=== PATIENT | male | born 1980 | race Caucasian/White ===

== ENCOUNTER 2017-01-27 16:29 | Emergency (ER) | payer MEDICAID, OTHER, SELFPAY ==
[~2017-01-27] VITALS: Ht 182.9 cm; Wt 77.1 kg
[~2017-01-27 16:29] MED LIST: FOLI1TAB86 PO; LEVI20TA39 PO; VENL37TA PO; VITA100T18 PO; VITMTA PO
[2017-01-27 16:30] VITALS: BP 146/79
[2017-01-27 17:39] LABS: BASO % 0.3 % (0.0-1.0); EOS # 0.1 K/mm3 (0.0-0.50); EOS % 1.5 % (0.0-3.0); LARGE UNSTAINED CELL # 0.1 K/mm3 (0.0-0.4); LARGE UNSTAINED CELL % 1.8 % (0.0-4.0); LYMPH # 2.5 K/mm3 (1.5-4.5); LYMPH % 29.8 % (24.0-44.0); MEAN CORPUSCULAR HEMOGLOBIN 29.1 pg (27.0-33.0); MEAN CORPUSCULAR HGB CONC 34.1 g/dl (32.0-36.5); MEAN CORPUSCULAR VOLUME 85.3 fl (80.0-96.0); MONO # 0.5 K/mm3 (0.0-0.8); MONO % 6.6 % (0.0-5.0); NEUTROPHILS # 4.7 K/mm3 (1.8-7.7); PLATELET COUNT, AUTOMATED 331 k/mm3 (150-450); RED CELL DISTRIBUTION WIDTH 12.2 % (11.5-14.5); WHITE BLOOD COUNT 7.8 K/mm3 (4.0-10.0)
--- NOTE | 2017-01-27 17:40 | REPUSA ---
CT of the head Clinical history: left-sided neurological symptoms. Technique: Multiple axial CT images were obtained through the head without administration of contrast . Findings: The ventricles and sulci are symmetric bilaterally. There is no evidence of acute hemorrhag e or infarct. There is no midline shift, mass effect, or extra-axial fluid collection. The osseous st ructures are unremarkable. The visualized paranasal sinuses and mastoid air cells are clear. Impression: Negative study.
[2017-01-27 18:00] LABS: ALBUMIN 4.2 GM/DL (3.2-5.2); ALBUMIN/GLOBULIN RATIO 1.27 (1.00-1.93); ALKALINE PHOSPHATASE 99 U/L (45-117); ALT/SGPT 21 U/L (12-78); ANION GAP 7 MEQ/L (8-16); AST/SGOT 16 U/L (15-37); BILIRUBIN,TOTAL 0.5 MG/DL (0.2-1.0); BLOOD UREA NITROGEN 16 MG/DL (7-18); CALCIUM LEVEL 8.7 MG/DL (8.5-10.1); CARBON DIOXIDE LEVEL 31 MEQ/L (21-32); CHLORIDE LEVEL 104 MEQ/L (98-107); CREATININE FOR GFR 1.14 MG/DL (0.70-1.30); GLOMERULAR FILTRATION RATE > 60.0 (>60); GLUCOSE, FASTING 90 MG/DL (70-105); POTASSIUM SERUM 3.7 MEQ/L (3.5-5.1); SODIUM LEVEL 142 MEQ/L (136-145); TOTAL PROTEIN 7.5 GM/DL (6.4-8.2)
[2017-01-27] MEDS ORDERED: LR 1,000 ML IV SCH (18:00)
[2017-01-27] MEDS ORDERED: methylPREDNISolone 500 MG, VIAL MATE ADAPTER 1 EACH in D5W 250 ML IV ONE (20:00)
[2017-01-27] MEDS ORDERED: predniSONE 20 MG TAB PO ONE (20:00)
[2017-01-27] MEDS ORDERED: predniSONE 50 MG TAB PO ONE (20:00)
[2017-01-27] MEDS ORDERED: BACL10TA2 PO (21:49)
== END 2017-01-27 22:10 | disposition home or self-care (01) ==
LOC: M ED 17:02
DX: G35 Multiple sclerosis (principal); F17.200 Nicotine dependence, unspecified, uncomplicated
CPT/HCPCS: 70450; 80053; 85025; 96361; 96365; 96366; 99282; J2930

== ENCOUNTER 2017-01-28 13:54 | Emergency (ER) | payer MEDICAID, OTHER ==
[~2017-01-28] VITALS: Ht 182.9 cm; Wt 79.4 kg
[~2017-01-28 13:54] MED LIST changes: +BACL10TA2 PO
[2017-01-28] MEDS ORDERED: methylPREDNISolone INJ 125 MG/2 ML VIAL (J2930) IV ONE (15:45)
[2017-01-28 16:37] VITALS: BP 143/88
[2017-01-29] MEDS ORDERED: PRED10TA PO (14:49)
== END 2017-01-28 16:40 | disposition home or self-care (01) ==
LOC: M ED 15:45
DX: G35 Multiple sclerosis (principal); F17.200 Nicotine dependence, unspecified, uncomplicated; Z79.899 Other long term (current) drug therapy
CPT/HCPCS: 96374; 99282; J2930

== ENCOUNTER 2017-01-29 12:41 | Emergency (ER) | payer OTHER ==
[~2017-01-29] VITALS: Ht 182.9 cm; Wt 79.4 kg
[2017-01-29] MEDS ORDERED: methylPREDNISolone INJ 125 MG/2 ML VIAL (J2930) IV ONE (13:00)
[2017-01-29] MEDS ORDERED: methylPREDNISolone 500 MG, VIAL MATE ADAPTER 1 EACH in D5W 250 ML IV ONE (13:15)
[2017-01-29] MEDS ORDERED: PRED10TA PO (14:49)
[2017-01-29 15:32] VITALS: BP 134/72
== END 2017-01-29 15:34 | disposition home or self-care (01) ==
LOC: M ED 13:01
DX: G35 Multiple sclerosis (principal); F17.200 Nicotine dependence, unspecified, uncomplicated; Z79.899 Other long term (current) drug therapy
CPT/HCPCS: 96374; 99283; J2930

== ENCOUNTER 2017-04-27 10:36 | Emergency (ER) | payer OTHER ==
[~2017-04-27] VITALS: Ht 182.9 cm; Wt 80.1 kg
[~2017-04-27 10:36] MED LIST changes: +PRED10TA2 PO
[2017-04-27] MEDS: methylPREDNISolone 500 MG, VIAL MATE ADAPTER 1 EACH in D5W 250 ML IV ONE (11:30)
[2017-04-27] MEDS: diazePAM 5 MG TAB PO ONE (11:39)
[2017-04-27] MEDS: NS 1,000 ML IV ONE (11:45)
[2017-04-27 11:55] LABS: BASO # 0.1 K/mm3 (0.0-0.2); BASO % 1.5 % (0.0-1.0); EOS # 0.1 K/mm3 (0.0-0.50); EOS % 1.9 % (0.0-3.0); LARGE UNSTAINED CELL # 0.1 K/mm3 (0.0-0.4); LARGE UNSTAINED CELL % 2.1 % (0.0-4.0); LYMPH # 1.5 K/mm3 (1.5-4.5); LYMPH % 33.7 % (24.0-44.0); MEAN CORPUSCULAR HEMOGLOBIN 29.9 pg (27.0-33.0); MEAN CORPUSCULAR HGB CONC 34.8 g/dl (32.0-36.5); MONO # 0.4 K/mm3 (0.0-0.8); MONO % 9.2 % (0.0-5.0); NEUTROPHILS # 2.2 K/mm3 (1.8-7.7); NEUTROPHILS % 51.6 % (36.0-66.0); PLATELET COUNT, AUTOMATED 297 k/mm3 (150-450); RED CELL DISTRIBUTION WIDTH 12.5 % (11.5-14.5); WHITE BLOOD COUNT 4.2 K/mm3 (4.0-10.0)
[2017-04-27 12:20] LABS: ANION GAP 4 MEQ/L (8-16); BLOOD UREA NITROGEN 9 MG/DL (7-18); CALCIUM LEVEL 9.1 MG/DL (8.5-10.1); CARBON DIOXIDE LEVEL 30 MEQ/L (21-32); CHLORIDE LEVEL 104 MEQ/L (98-107); CREATININE FOR GFR 0.89 MG/DL (0.70-1.30); GLOMERULAR FILTRATION RATE > 60.0 (>60); GLUCOSE, FASTING 82 MG/DL (70-105); POTASSIUM SERUM 4.3 MEQ/L (3.5-5.1); SODIUM LEVEL 138 MEQ/L (136-145)
[2017-04-27] MEDS ORDERED: VALI5TAB PO (13:14)
[2017-04-27] MEDS ORDERED: MEDR4PAK PO (13:14)
[2017-04-27 13:26] VITALS: BP 109/72
== END 2017-04-27 13:29 | disposition home or self-care (01) ==
LOC: EEVIPCON 10:36 → M ED 10:36
DX: R53.81 Other malaise (principal); R53.83 Other fatigue; G35 Multiple sclerosis; F32.9 Major depressive disorder, single episode, unspecified

== ENCOUNTER → 2017-06-27 | Outpatient (REF) | payer MEDICAID, OTHER ==
[~2017-06-27] MED LIST changes: +MEDR4PAK PO; +VALI5TAB PO
[2017-06-27 14:07] LABS: FOLATE 9.8 NG/ML (>5.4); VITAMIN B12 LEVEL 1049 PG/ML (247-911)
[2017-06-29 00:07] LABS: Lyme Disease IgG/IgM Antibodie <0.91 ISR (0.00-0.90); Lyme Disease IgM Ab Quantitati <0.80 index (0.00-0.79)
== END ==
LOC: M LABNEURO 10:14
PROVIDERS: ATTEND Psychiatry & Neurology Neurology
DX: G35 Multiple sclerosis (principal)

== ENCOUNTER → 2017-06-28 | Outpatient (REF) | payer MEDICAID, OTHER ==
[2017-07-03 08:06] LABS: VITAMIN E LEVEL 9.6 mg/L (5.3-17.5)
== END ==
LOC: M LABDRAW1 13:55
PROVIDERS: ATTEND Psychiatry & Neurology Neurology
DX: G35 Multiple sclerosis (principal)

== ENCOUNTER 2018-01-10 12:07 | Outpatient (CLI) | payer MEDICAID ==
[2018-01-10] MEDS: methylPREDNISolone 1,000 MG, VIAL MATE ADAPTER 1 EACH in D5W 250 ML IV (12:59)
== END 2018-01-10 13:57 | disposition home or self-care (01) ==
LOC: M OPCLI4PV 12:07 → M MSPAV 12:16 → M OPCLI4PV 13:57
DX: G35 Multiple sclerosis (principal)
CPT/HCPCS: J2930

== ENCOUNTER 2018-01-11 13:02 | Outpatient (CLI) | payer MEDICAID ==
[2018-01-11] MEDS: methylPREDNISolone 1,000 MG, VIAL MATE ADAPTER 1 EACH in D5W 250 ML IV (14:05)
== END 2018-01-11 15:10 | disposition home or self-care (01) ==
LOC: M OPCLI4PV 13:02 → M MSPAV 13:56 → M OPCLI4PV 15:10
DX: G35 Multiple sclerosis (principal)
CPT/HCPCS: J2930

== ENCOUNTER 2018-01-13 11:53 | Outpatient (CLI) | payer MEDICAID ==
[2018-01-13] MEDS: methylPREDNISolone 1,000 MG, VIAL MATE ADAPTER 1 EACH in D5W 250 ML IV (13:16)
== END 2018-01-13 14:11 | disposition home or self-care (01) ==
LOC: M OPCLI4PV 11:53 → M MSPAV 11:59 → M OPCLI4PV 14:11
DX: G35 Multiple sclerosis (principal)
CPT/HCPCS: J2930

== ENCOUNTER → 2018-02-05 | Outpatient (CLI) | payer OTHER ==
[2018-02-05 14:26] LABS: LITHIUM LEVEL 0.55 MEQ/L (0.60-1.20)
== END ==
LOC: M LAB 13:02
DX: F31.9 Bipolar disorder, unspecified (principal)
CPT/HCPCS: 80178